=== PATIENT | female | born 1975 | race African-American/Black ===

== ENCOUNTER 2017-05-26 08:20 | Emergency (ER) | payer OTHER ==
[~2017-05-26] VITALS: Ht 157.5 cm; Wt 63.5 kg
[2017-05-26] MEDS ORDERED: ACCUPRIL5 MG PO (08:53)
[2017-05-26] MEDS ORDERED: PREDNISONE 20 M20 MG PO (09:18)
[2017-05-26] MEDS ORDERED: PROAIR HFA8.5 GM INH (09:18)
== END 2017-05-26 09:21 | disposition home or self-care (01) ==
LOC: ER 08:20
DX: J06.9 Acute upper respiratory infection, unspecified (principal); J98.01 Acute bronchospasm; I10 Essential (primary) hypertension; F17.210 Nicotine dependence, cigarettes, uncomplicated

== ENCOUNTER 2018-11-20 08:17 | Emergency (ER) | payer OTHER ==
[~2018-11-20] VITALS: Ht 157.5 cm; Wt 64.4 kg
[~2018-11-20 08:17] MED LIST: ACCUPRIL5 MG PO; PREDNISONE 20 M20 MG PO; PROAIR HFA8.5 GM INH
[2018-11-20 08:21] VITALS: BP 142/52
[2018-11-20] MEDS ORDERED: NORCO 5-325 TA1 EAC1 PO (08:25)
[2018-11-20] MEDS ORDERED: IBUPROFEN 800800 M1 PO (08:25)
[2018-11-20] MEDS ORDERED: ZOFRAN4 MG PO (09:12)
== END 2018-11-20 09:15 | disposition home or self-care (01) ==
LOC: ER 08:17
DX: R11.0 Nausea (principal); I10 Essential (primary) hypertension; F17.210 Nicotine dependence, cigarettes, uncomplicated; Z79.899 Other long term (current) drug therapy

== ENCOUNTER 2020-04-03 01:18 | Emergency (ER) | payer BC ==
[~2020-04-03] VITALS: Ht 157.5 cm; Wt 61.7 kg
[~2020-04-03 01:18] MED LIST changes: +IBUPROFEN 800800 M1 PO; +NORCO 5-325 TA1 EAC1 PO; +ZOFRAN4 MG PO
[2020-04-03] MEDS ORDERED: SUPER THERAVIT1 EACH PO (01:29)
[2020-04-03] MEDS ORDERED: MOBIC7.5 M1 PO (01:47)
[2020-04-03] MEDS ORDERED: METROGEL-VAGINA70 GM VAG (01:48)
[2020-04-03] MEDS ORDERED: QUINAPRIL-HCTZ1 EAC1 PO (01:49)
[2020-04-03 03:49] VITALS: BP 124/75
== END 2020-04-03 03:50 | disposition home or self-care (01) ==
LOC: ER 01:18
DX: M25.511 Pain in right shoulder (principal); I10 Essential (primary) hypertension; F17.210 Nicotine dependence, cigarettes, uncomplicated; Z79.899 Other long term (current) drug therapy